=== PATIENT | male | born 1955 | race African-American/Black ===

== ENCOUNTER 2022-01-06 14:05 | Emergency (ER) | payer MEDICARE, SELFPAY ==
[2022-01-06 14:06] VITALS: BP 153/105; PULSE 88; RESP 18; TEMP 36.1; O2SAT 99
[2022-01-06 15:28] LABS: Basophils Absolute Auto 0.1 K/mm3 (0.0-0.1); Basophils Percent Auto 0.6 % (0.2-1.2); Eosinophils Absolute Auto 0.3 K/mm3 (0-0.3); Eosinophils Percent Auto 3.3 % (0-4.4); Hematocrit 38.3 % (42.0-52.0); Hemoglobin 12.5 g/dL (14.0-18.0); Immature Granulocyte Absolute 0.04 K/mm3 (0.00-0.031); Immature Granulocyte Percent A 0.5 % (0-0.5); Lymphocytes Absolute Auto 2.38 K/mm3 (0.9-3.2); Lymphocytes Percent Auto 28.1 % (18.3-44.2); Mean Corpuscular HGB Conc 32.6 g/dl (32-36); Mean Corpuscular Hemoglobin 32.9 pg (26-34); Mean Corpuscular Volume 100.8 fl (80-100); Monocytes Absolute Auto 0.7 K/mm3 (0.1-0.6); Monocytes Percent Auto 8.6 % (2.6-8.5); Neutrophils Percent Auto 58.9 % (45.5-73.1); Platelet Count Result 249 k/mm3 (150-375); Red Cell Distribution Width 11.9 % (11.5-14.5); White Blood Count 8.5 K/mm3 (4.5-10.0)
[2022-01-06 15:41] LABS: Alanine Aminotransferase 31 U/L (6-50); Albumin Level 4.3 g/dL (3.5-5.1); Alkaline Phosphatase 62 U/L (38-126); Anion Gap 7 mmol/L (8-16); Aspartate Amino Transferase 26 U/L (17-59); Bilirubin,Total 0.9 mg/dL (0.2-1.3); Blood Urea Nitrogen 21 mg/dL (9-20); Calcium 8.8 mg/dL (8.4-10.2); Carbon Dioxide 26 mmol/L (22-30); Chloride 107 mmol/L (98-107); Estimated CRCL calculation 63 ml/min; Estimated Glomerular Filt Rate > 60; Glucose 100 mg/dL (65-110); Sodium 140 mmol/L (137-145); Uric Acid 9.2 mg/dL (3.5-8.5)
[2022-01-06] MEDS: INDOMETHACIN 25 MG CAPSULE 50 MG PO (16:01)
--- NOTE | 2022-01-06 16:36 | ED.EXTPRO ---
HPI - Extremity Problem General Chief complaint: Extremity Problem,Nontraumatic Stated complaint: Toe swelling Time Seen by Provider: 01/06/22 14:20 Source: patient Mode of arrival: ambulatory Limitations: no limitations History of Present Illness HPI Narrative: 66-year-old male presents today with complaints of left great toe pain and swelling that started 2 to 3 weeks ago. Patient has noted increase in swelling and redness recently and was concerned. Patient denies any trauma, lacerations, or history of gout. Patient denies fever, body aches or chills. Related Data Allergies Allergy/AdvReac Type Severity Reaction Status Date / Time lisinopril AdvReac Cough Verified 01/06/22 14:10 Review of Systems Review of Systems: CONSTITUTIONAL: Denies fever, chills, or sweats. EYES: Denies visual changes, redness, or discharge. ENT: Denies rhinorrhea, congestion, sore throat, or otalgia. CARDIOVASCULAR: Denies chest pain, palpitations, or edema. RESPIRATORY: Denies cough or dyspnea. GASTROINTESTINAL: Denies abdominal pain, nausea, vomiting, or diarrhea. GENITOURINARY: Denies dysuria or hematuria. SKIN: Denies rash or itching. MUSCULOSKELETAL: Left great toe pain started 2 to 3 weeks ago. Swelling and redness to left great toe running up foot. Denies back pain or myalgia. NEUROLOGIC: Denies headache, numbness, dizziness, or weakness. PSYCHIATRIC: Denies anxiety or depression. Exam Narrative: GENERAL: Well-appearing, well-nourished, and in no acute distress. HEAD: Normocephalic, atraumatic. EYES: PERRLA and EOMI. ENT: Nares clear, no rhinorrhea or epistaxis. Mucous membranes moist. Oropharynx without tonsillar hypertrophy exudate or other lesions. Bilateral TMs pearly cast nonbulging NECK: Supple. No adenopathy or masses. No carotid bruits or JVD CHEST: Clear to auscultation. No respiratory distress. No wheezes rales or rhonchi HEART: Regular rate and rhythm. No murmur heard. Normal peripheral pulses. ABDOMEN: Soft, nontender, nondistended, normal active bowel sounds. EXTREMITIES: Left great toe swollen with erythema. Minimal swelling noted to foot up to about ankle. Slight erythema noted. Area warm to touch. SKIN: Warm, dry, no rash. NEURO: No focal deficits. Alert and oriented x3. PSYCH: Normal mood and affect. Course Course Emergency Course: Labs reviewed with patient. Will discharge patient home with indomethacin and antibiotics. Patient instructed to follow-up with primary in 3 days. Vital Signs Vital signs: Vital Signs Temperature 36.1 C L 01/06/22 14:06 Pulse Rate 88 01/06/22 14:06 Respiratory Rate 18 01/06/22 14:06 Blood Pressure 153/105 H 01/06/22 14:06 Pulse Oximetry 99 01/06/22 14:06 Oxygen Delivery Room Air 01/06/22 14:06 Temperature 36.1 C L 01/06/22 14:06 Pulse Rate 88 01/06/22 14:06 Respiratory Rate 18 01/06/22 14:06 Blood Pressure 153/105 H 01/06/22 14:06 Pulse Oximetry 99 01/06/22 14:06 Oxygen Delivery Room Air 01/06/22 14:06 MDM - Extremity (Nontraumatic) MDM Narrative Medical decision making narrative: 66-year-old male HPI as noted. Suspicious for gout and cellulitis. No suspicion for fracture due to patient denying trauma. Imaging not indicated at this time. 8.5 and uric acid 9.2. Erythema and redness noted to left great toe extending up to the foot. We will treat for gout and cellulitis with indomethacin and Keflex. Potassium 3.0 prescription sent for patient to take potassium at home. Patient instructed to return with any new or worsening concerns and follow-up with primary for further management. Differential Diagnosis Differential diagnosis: Likely gout and cellulitis Lab Data Result diagrams: 01/06/22 15:23 01/06/22 15:23 Labs: Lab Results 01/06/22 01/06/22 Range/Units 15:23 15:23 WBC 8.5 (4.5-10.0) K/mm3 RBC 3.80 L (4.6-6.20) M/mm3 Hgb 12.5 L (14.0-18.0) g/dL Hct 38.3 L (42.0-52.0) %
== END 2022-01-06 15:55 | disposition home or self-care (01) ==
PROVIDERS: Emergency Provider Nurse Practitioner Family
DX: M10.9 Gout, unspecified (principal); L03.032 Cellulitis of left toe
CPT/HCPCS: 36415; 80053; 84550; 85025; 99283; A9270

== ENCOUNTER 2022-06-02 11:20 | Emergency (ER) | payer MEDICARE, SELFPAY ==
--- NOTE | ~2022-06-02 | US_ITS ---
US scrotum doppler INDICATION: Left testicular pain and swelling TECHNIQUE: Testicular sonogram utilizing grayscale and color Doppler FINDINGS: The testes are normal in size and appearance. No focal lesions are seen. The right testes measures 2.5 x 1.7 x 2.7 cm centimeters, and the left testis measures 5.4 x 3.4 x 3.1 cm cm. There is increased vascularity in the left testicle. There is skin thickening overlying the left testicle. There are bilateral epididymal cysts. There is increased vascularity of the left epididymis. There are bilateral varicoceles. There is a complicated septated left hydrocele. IMPRESSION: 1. Increased vascularity in the left testicle and epididymis with complicated left hydrocele, compat ible with epididymoorchitis. 2: Bilateral varicoceles. 3: Bilateral epididymal cysts, largest on the right measuring 1.8 cm. Reviewed, dictated and finalized at location A. IMPRESSION: 1. Increased vascularity in the left testicle and epididymis with complicated left hydrocele, compatible with epididymoorchitis. 2: Bilateral varicoceles. 3: Bilateral epididymal cysts, largest on the right measuring 1.8 cm.
[2022-06-02 11:22] VITALS: BP 148/92; PULSE 102; RESP 18; TEMP 36.2; O2SAT 98
--- NOTE | 2022-06-02 12:06 | ED.GENADULT ---
HPI - General Adult General Chief complaint: Urogenital-Male Stated complaint: scrotal swelling Time Seen by Provider: 06/02/22 11:53 History of Present Illness HPI narrative: This is a 66-year-old male presenting with 2 days of testicular pain and swelling. Said that he had gradual swelling and discomfort of his testicles since Friday. Pain is worse than left than the right. He also noted there in that time he has not had dysuria but he has had increased urinary urgency and frequency. No pain in his rectum or with bowel movements. Patient is sexually active with his . No concern for STDs.. He has never had this happen before. He denies fever, chills, nausea vomiting or diarrhea. Related Data Allergies Allergy/AdvReac Type Severity Reaction Status Date / Time lisinopril AdvReac Cough Verified 06/02/22 11:24 Review of Systems Review of Systems: CONSTITUTIONAL: Denies night sweats. EYES: No eye pain ENT: Denies rhinorrhea CARDIOVASCULAR: Denies palpitations RESPIRATORY: Denies hemoptysis GASTROINTESTINAL: Denies hematemesis GENITOURINARY: Denies hematuria. SKIN: Denies rash MUSCULOSKELETAL: Denies myalgia. NEUROLOGIC: Denies weakness. PSYCHIATRIC: Denies delusions [facility] Surgical History Surgical History H/O brain surgery H/O wrist surgery Social History Social History Social History: Positive for occasional etoh. tobacco 1ppd. no drugs Exam Narrative: APPEARANCE: No apparent distress. Head atraumatic. EYES: PERRLA/EOMI, NOSE: Normal no drainage NECK: Supple, Trachea midline RESPIRATORY: CTAB, No increased work of breathing. CARDIOVASCULAR: S1S2 appreciated ABDOMINAL: Soft, nontender, nondistended, MUSCULOSKELETAl: No obvious deformities : Swelling to the scrotum. no cremasteric reflex. generalized tenderness to the scrotum but worse in the posterior aspect. No pain over the perineum. NEURO: Alert. Moving 4/4 extremities SKIN:: Warm, dry. Normal color PSYCHIATRIC: Normal affect Course Vital Signs Vital signs: Vital Signs Temperature 97.2 F L 06/02/22 11:22 Pulse Rate 102 H 06/02/22 11:22 Respiratory Rate 18 06/02/22 11:22 Blood Pressure 148/92 H 06/02/22 11:22 Pulse Oximetry 98 06/02/22 11:22 Temperature 97.2 F L 06/02/22 11:22 Pulse Rate 102 H 06/02/22 11:22 Respiratory Rate 18 06/02/22 11:22 Blood Pressure 148/92 H 06/02/22 11:22 Pulse Oximetry 98 06/02/22 11:22 Medical Decision Making MDM Narrative Medical decision making narrative: This is a 66-year-old male presented with 2 days of scrotal pain. Patient has been having urinary symptoms. UA will be ordered to evaluate for epididymitis. Ultrasound has been ordered And cultures have been sent.. Patient has been given Dilaudid for pain control. Testicular ultrasound showed head findings are consistent with epididymitis / orchitis. There also varicoceles and a septated varicocele Patient is not systemically ill. He has no signs of prostatitis at this time. He will be treated with a 10 day course of levofloxacin with urology follow-up. Vital Signs Vital Signs: Vital Signs Temperature 97.2 F L 06/02/22 11:22 Pulse Rate 102 H 06/02/22 11:22 Respiratory Rate 18 06/02/22 11:22 Blood Pressure 148/92 H 06/02/22 11:22 Pulse Oximetry 98 06/02/22 11:22 Temperature 97.2 F L 06/02/22 11:22 Pulse Rate 102 H 06/02/22 11:22 Respiratory Rate 18 06/02/22 11:22 Blood Pressure 148/92 H 06/02/22 11:22 Pulse Oximetry 98 06/02/22 11:22 Lab Data Result diagrams: 06/02/22 12:12 06/02/22 12:12 Labs: Lab Results 06/02/22 06/02/22 06/02/22 Range/Units 12:12 12:12 12:55 WBC 11.0 H (4.5-10.0) K/mm3 RBC 3.71 L (4.6-6.20) M/mm3 Hgb 12.3 L (14.0-18.0) g/dL Hct 37.4 L (42.0-52.0) % MCV 100.8 H
[2022-06-02 12:26] LABS: Basophils Absolute Auto 0.1 K/mm3 (0.0-0.1); Basophils Percent Auto 0.5 % (0.2-1.2); Eosinophils Absolute Auto 0.2 K/mm3 (0-0.3); Eosinophils Percent Auto 1.7 % (0-4.4); Hematocrit 37.4 % (42.0-52.0); Hemoglobin 12.3 g/dL (14.0-18.0); Immature Granulocyte Absolute 0.04 K/mm3 (0.00-0.031); Immature Granulocyte Percent A 0.4 % (0-0.5); Lymphocytes Absolute Auto 1.33 K/mm3 (0.9-3.2); Lymphocytes Percent Auto 12.1 % (18.3-44.2); Mean Corpuscular HGB Conc 32.9 g/dl (32-36); Mean Corpuscular Hemoglobin 33.2 pg (26-34); Mean Corpuscular Volume 100.8 fl (80-100); Mean Platelet Volume 9.6 fl (7.4-10.4); Monocytes Absolute Auto 0.9 K/mm3 (0.1-0.6); Neutrophils Absolute Auto 8.5 K/mm3 (1.3-6.7); Neutrophils Percent Auto 77.3 % (45.5-73.1); Platelet Count Result 245 k/mm3 (150-375); Red Blood Count 3.71 M/mm3 (4.6-6.20); Red Cell Distribution Width 12.3 % (11.5-14.5)
[2022-06-02 12:33] LABS: Anion Gap 11 mmol/L (8-16); Blood Urea Nitrogen 24 mg/dL (9-20); Calcium 8.9 mg/dL (8.4-10.2); Carbon Dioxide 26 mmol/L (22-30); Chloride 105 mmol/L (98-107); Estimated CRCL calculation 59 ml/min; Estimated Glomerular Filt Rate 57; Glucose 126 mg/dL (65-110); Magnesium 2.3 mg/dL (1.6-2.3); Potassium 3.2 mmol/L (3.4-5.0); Sodium 142 mmol/L (137-145)
[2022-06-02 13:11] LABS: INR 1.4; Prothrombin Time 16.9 Seconds (11.1-14.7)
[2022-06-02 13:12] LABS: Partial Thromboplastin Time 32.1 SECONDS (22.3-36.8)
[2022-06-02] MEDS: SODIUM CHLORIDE 0.9% IV 1,000 ML 999 ML IV CONT (13:34)
[2022-06-02] MEDS: ACETAMINOPHEN 500 MG TABLET 1000 MG PO (13:35)
[2022-06-02] MEDS: HYDROmorphone HCL INJ (*CRX) 1 MG/ML SYR 0.5 MG IV PUSH (13:36)
[2022-06-02 13:47] LABS: Appearance Urine Clear (Clear); Bilirubin Urine 1+ (Negative); Blood Urine Trace-intact (Negative); Color Urine Yellow (Yellow); Glucose Urine UA Negative (Negative); Ketones Urine Negative (Negative); Leukocyte Esterase Ur 1+ LEU/UL (Negative); Nitrate Urine Negative (Negative); Protein Urine 2+ mg/dL (Negative); Specific Grav Ur 1.015 (1.001-1.035); Urobilinogen Urine >=8.0 mg/dL (<2.0); pH Urine 6.5 (5.0-9.0)
[2022-06-02 13:52] LABS: Bacteria Urine Trace /hpf; Mucus Urine Rare /lpf; Squamous Epithelial Cell Urine Rare /hpf (Few); WBC Urine 31-50 /hpf
[2022-06-02 13:55] LABS: Add Urine Microscopic? YES
[2022-06-02] MEDS: levoFLOXacin 500 MG TABLET PO (14:36)
== END 2022-06-02 15:05 | disposition home or self-care (01) ==
PROVIDERS: Emergency Provider Emergency Medicine
DX: N45.1 Epididymitis (principal); F17.210 Nicotine dependence, cigarettes, uncomplicated
CPT/HCPCS: 36415; 76870; 80048; 81001; 83735; 85025; 85610; 85730; 87077; 87086; 87186; 93976; 96361; 96374; 99284; A9270; J1170; J7030